=== PATIENT | female | born 1990 | race Caucasian/White ===

== ENCOUNTER 2018-06-15 07:30 | Outpatient (CLI) | payer OTHER, MEDICAID, SELFPAY ==
[2015-07-15 09:12] VITALS: BMI 29.7
[2018-06-15 07:52] VITALS: BMI 31.4
--- NOTE | 2018-06-25 13:53 | OB.TRI.NOTE ---
History of Present Illness Date of Service: 06/15/18 Was patient seen by the physician?: No Reason For Visit: DECREASED MOVEMENT Date of Service: 06/15/18 Final JESSICA Source: LMP Gestational age: 39w 6d Allergies No Known Allergies Allergy (Verified 06/19/18 22:58) NST - FHR Rate Baby A Baseline: 130 bppm Variability:: Moderate Accelerations:: 15 x 15 Decelerations:: None NST Reactive:: Yes, Appropriate for gestational age FHR Category:: Category I Uterine Activity:: irritability Impression/Plan 28 YOF multigravida with decreased movement at 39 weeks gestationb reactive NST to follow up in office as scheduled or as needed
== END 2018-06-15 08:15 | disposition home or self-care (01) ==
LOC: WPOUT 07:38 → WP 07:38
PROVIDERS: Family Provider Family Medicine; PCP Family Medicine; Referring Provider Obstetrics & Gynecology; Visit Provider Obstetrics & Gynecology
DX: O36.8130 Decreased fetal movements, third trimester, not applicable or unspecified (principal); Z3A.39 39 weeks gestation of pregnancy
CPT/HCPCS: 59025; 59050; 99218; G0378

== ENCOUNTER 2018-06-19 22:05 | Inpatient (IN) | payer OTHER, MEDICAID, SELFPAY ==
[2018-06-19] MEDS: Lactated Ringers 1,000 ML 50 ML IV (22:50)
[2018-06-19 22:57] VITALS: BMI 31.5
[2018-06-19 23:21] LABS: Absolute Lymphocyte Count 2.34 X10^3/ul (0.83-4.51); Absolute Neutrophil Count 7.4 X10^3/uL (2.0-7.7); Basophil# 0.01 X10^3/uL; Basophil% 0.1 % (0-1); Eosinophil# 0.08 X10^3/uL; Eosinophils% 0.8 % (0-5); Hematocrit 32.6 % (37-47); Hemoglobin 11.2 g/dl (12.0-15.0); Lymphocyte # 2.34 X10^3/ul (4.0); Lymphocyte % 22.1 % (19-41); Mean Corp Hgb Conc 34.4 g/gl (32-36); Mean Corpuscular Hgb 29.3 pg (27.0-32.0); Mean Corpuscular Volume 85.3 fL (81-99); Mean Platelet Vol. 8.8 fl (6.2-12.0); Monocyte# 0.77 X10^3/uL; Monocyte% 7.3 % (0-10); Neutrophil # 7.36 X10^3/uL (2.7-7.7); Neutrophil % 69.6 % (47-70); Platelet Count 230 K/mm3 (150-450); RBC Distribution Width CV 12.8 % (11.6-14.6); RBC Distribution Width SD 39.3 fl (35.1-43.9); Red Blood Count 3.82 M/mm3 (4.2-5.4); White Blood Count 10.6 K/mm3 (4.4-11.0)
[2018-06-19 23:23] LABS: POSITIVE COUNT NO; POSITIVE DIFFERENTIAL NO; POSITIVE MORPHOLOGY NO
[2018-06-19] MEDS: Oxytocin 30 units/NS 500 ml 30 UNITS/500 ML IV.SOLN IV (23:50)
[2018-06-20] MEDS: Oxytocin 30 units/NS 500 ml 30 UNITS/500 ML IV.SOLN 334 UNITS IV (01:25)
--- NOTE | 2018-06-20 01:47 | HP.PCM_ITS ---
- Problem List (1) 40 weeks gestation of Status: Acute (2) Multiparity Status: Acute (3) Spontaneous rupture of membranes Status: Acute History Date of Admission: 06/20/18 Final JESSICA: 06/16/18 Final JESSICA Source: LMP Gestational age: 40 Weeks and 4 Days History of this : This is a 28 year-old, G4, P3003, at 40 weeks gestational age who presents after SROM at home. Contractions q 8 hrs. No VB. Allergies No Known Allergies Allergy (Verified 06/19/18 22:58) Home Medications: Home Medications Vits [Prenatabs FA ] 1 tablet PO DAILY 07/30/13 Smoking Status: Never smoker Alcohol: None Number of Fetus(es): 1 Heart Tracing: Category 1 TOCO Analysis: Ctx's q 8 hrs prior to pitocin on admission History Past Pregnancies: Past Pregnancies Delivery Date Name GA/Weeks Outcome Route Weight Gender Labor Length Anesthesia Delivery Location Provider FOB 40w6d 38w3d 39w2d Labs: GBS neg 1 hr GTT 65 Hgb 11.4 Syphilis neg RI Hep B neg HIV neg Rh positive Antibody screen neg GC/CT neg US at 32 wks for size date discrepancy: AGA 22% growth, nml fluid Expected Delivery Method: Spontaneous Vaginal Review of Systems Gynecological: Reports: - - +SROM Physical Exam General: Alert, No apparent distress HEENT: Atraumatic Lungs: - - No increased resp effort Abdomen: Gravid Extremities:: No edema Neurological: Neuro grossly intact [employer]: Normal external genitalia Estimated gestational size: Appropriate for gestational size Presentation: Cephalic Assessment/Plan All Active Problems 40 weeks gestation of (Acute) Multiparity (Acute) Spontaneous rupture of membranes (Acute) This is a 28 year-old, G4, P3003, at 40 weeks gestational age who presents after SROM at home. - Pitocin started for augmentation - GBS negative - Pt did not desire epidural - Routine intrapartum care - Progressed quickly, see delivery note
--- NOTE | 2018-06-20 01:50 | PCM.OPRPT ---
Problem List (1) 40 weeks gestation of Status: Acute (2) Multiparity Status: Acute (3) Spontaneous rupture of membranes Status: Acute Report of Operation Date of Procedure: 06/20/18 Pre-Operative Diagnosis: 40 week gestation, multiparous patient, SROM Post-Operative Diagnosis: As above Surgery/Procedure Performed:: Type of Anesthesia:: Local Specimen's removed: Placenta Drains: None Estimated Blood Loss (mL): 250 Description of Procedure: Patient progressed quickly on 2 mu/min of pitocin. Complete and pushing. Head, anterior shoulder, posterior shoulder delivered without force or delay. VMI delivered atraumatically and placed on mother's abdomen. Cord was clamped and cut after a 60 sec delay. Cord blood obtained. Placenta delivered intact with fundal massage. Placenta noted to be normal in appearance with a 3 VC. Fundus firm and bleeding hemostatic. 2nd degree left vaginal laceration repaired in usual fashion with 3-0 Vicryl. Grafts/Implants Used: None - Complications None - Admit VTE Documentation VTE Present on Admission: No VTE Mechan Device Prophylaxis: None VTE Pharm Prophylaxis ordered?: No Vaginal Delivery Maternal Presentation: Spontaneous Rupture of Membranes Method of Induction: Pitocin - Used for augmentation Amniotic Membrane Rupture Type: Spontaneous at home Amniotic Fluid Description: Clear Final JESSICA: 06/16/18 Gestational age: 40 Weeks and 4 Days Date of Procedure: 06/20/18 Pre-Operative Diagnosis: 40 week gestation, multiparous patient, SROM Post-Operative Diagnosis: As above Surgery/ Procedure Performed: Spontaneous Vaginal Delivery Type of Anesthesia: Local with 1% lidocaine Presentation: Vertex Placental Delivery Description: Expressed Cord Vessel Description: 3 Vessels Nuchal Cord Compression: Without compression Cord Entanglement: Around neck x 1, loose Estimated Blood Loss: 250 A gender: Male (1 minute): 8 (5 minute): 9 Episiotomy Description: None Laceration: 2nd degree - left vaginal Medications given after delivery: IV Pitocin Complications: None Baby B - Information Amniotic Membrane Rupture Type: Spontaneous Presentation: Vertex - Operative Information Cord Entanglement: Around neck x 1, loose Cord Vessel Description: 3 Vessels Infant B gender: Male (1 minute): 8 (5 minute): 9
[2018-06-20] MEDS: Oxytocin 30 units/NS 500 ml 30 UNITS/500 ML IV.SOLN 167 UNITS IV (01:55)
[2018-06-20] MEDS: 0.9% Saline Lock 10 ML Syringe IV (03:04)
[2018-06-20 04:40] VITALS: BP 117/74; PULSE 78; RESP 16; TEMP 37.7
[2018-06-20] MEDS: Ibuprofen 600 MG Tablet PO ×2 (06:45→14:09)
[2018-06-20 07:35] VITALS: BP 114/58; PULSE 75; RESP 16; TEMP 36.6; O2SAT 99
--- NOTE | 2018-06-20 08:32 | PCM.PN.BLA ---
Progress Note At bedside to check on pt. She is doing well. currently. She has no complaints and feels well. Continue routine care
[2018-06-20 12:01] VITALS: BP 112/74; PULSE 80; RESP 16; TEMP 36.6; O2SAT 99
[2018-06-20 16:30] VITALS: BP 119/67; PULSE 68; RESP 18; TEMP 36.7; O2SAT 99
[2018-06-20 20:35] VITALS: BP 108/53; PULSE 72; RESP 18; TEMP 36.4
[2018-06-21 00:35] VITALS: BP 116/58; PULSE 67; RESP 18; TEMP 36.2
[2018-06-21] MEDS: Ibuprofen 600 MG Tablet PO ×2 (00:39→07:42)
[2018-06-21 04:45] VITALS: BP 123/68; PULSE 66; RESP 18; TEMP 36.5
[2018-06-21 07:42] VITALS: BP 121/77; PULSE 65; RESP 16; TEMP 36.4; O2SAT 95
--- NOTE | 2018-06-21 08:03 | PCM.PN.OB ---
Patient Problems: Active and Suspected Problems 40 weeks gestation of (Acute) Multiparity (Acute) Spontaneous rupture of membranes (Acute) Subjective: pt seen at bedside doing well. pt reports good pain control. lochia mild. breast feeding well. - Physical Exam General: Alert, Oriented x3 Abdomen: Soft, Non Tender, Non-Distended, - - fundus firm Extremities: No Calf Tenderness Vital Signs Temp Pulse Resp BP Pulse Ox 97.6 F L 65 16 121/77 H 95 06/21/18 07:42 06/21/18 07:42 06/21/18 07:42 06/21/18 07:42 06/21/18 07:42 Oxygen Delivery Method Room Air Weight: 80.739 kg Body Mass Index (BMI) 31.5 Intake and Output for Last 24 Hours 06/19/18 06/20/18 06/21/18 23:59 23:59 23:59 Intake Total 2468 / 2468 Output Total 1500 / 1500 Balance 968 / 968 Medical Necessity - Tobacco Use Smoking Status: Never smoker Assessment/Plan All Active Problems 40 weeks gestation of (Acute) Multiparity (Acute) Spontaneous rupture of membranes (Acute) PPD#1, doing well routine care pain mgmt dc home requested per patient
--- NOTE | 2018-06-21 08:06 | DCINST_ITS ---
Discharge Diet: No Restrictions Discharge Activity: Return to Normal Activity, May not drive while taking narcotic pain medications., May Shower May resume sexual activity in: 4-6 weeks Additional Activity Instructions:: Nothing in the vagina for 4-6 weeks. You may return to work/school in 6 weeks. Call your doctor if your incision/area has: Continuous Slow Oozing, Sudden Increased Bleeding, Increased Pain/ Swelling, Increased Redness, Foul Smelling Discharge Additional Instructions: If you experience any of the following, contact your healthcare provider. * Bleeding that soaks a pad every hour for 2 hours * Fever 100.4 or higher * Unrelieved incision or abdominal pain * Swelling, redness, discharge or bleeding from your incision or episiotomy site * Your incision begins to separate * Problems urinating (including inability to urinate or burning while urinating). * Visual changes * Severe headache * Flu-like symptoms * Pain or redness in one of both of your breasts * Pain, warmth, tenderness or swelling in your legs, especially the calf area * Frequent nausea and vomiting * Symptoms of depression or anxiety If you experience any of the following, call 911 or go to the nearest Emergency Room. * Chest pain * Problems breathing * Seizure activity * Partial or complete paralysis of a body part, slurred speech, weakness or drooping of the face, or a sudden inability to walk or hold your balance Allergies/Adverse Reactions: Allergies No Known Allergies Allergy (Verified 06/19/18 22:58) Medications to take at Discharge Vits [Prenatabs FA ] 1 tablet PO DAILY 07/30/13 Ibuprofen [Motrin] 600 mg PO Q6H PRN PRN #30 tablet 06/21/18 The following prescriptions were given: Ibuprofen [Motrin] 600 mg PO Q6H PRN PRN #30 tablet PRN Reason: Mild Pain (1-04/18) When: Call to make an appointment with your doctor in 6 weeks. If you had eleva cecil Blood Pressure or 4th degree laceration you will need to be seen in 2 weeks. Primary Care Physician: Reyes Alan DO [Primary Care Provider] - Test Results: Test results from this visit will be discussed in further detail at your follow- up appointment, if applicable.
[2018-06-21 12:00] VITALS: BP 117/76; PULSE 84; RESP 18; TEMP 36.7
--- NOTE | 2018-06-25 18:50 | NURSING ---
Follow up phone call made and encouraged to call back if we can be of assistance. Evon RN IBCLC
--- NOTE | 2018-07-03 13:50 | NURSING ---
no answer on follow up phone call. left voicemail
== END 2018-06-21 12:35 | disposition home or self-care (01) | DRG 807 ==
PROVIDERS: Admitting Provider Obstetrics & Gynecology; Family Provider Family Medicine; PCP Family Medicine; Visit Provider Obstetrics & Gynecology
DX: O70.1 Second degree perineal laceration during delivery (principal); O69.82X0 Labor and delivery complicated by other cord entanglement, without compression, not applicable or unspecified; Z37.0 Single live birth; Z3A.40 40 weeks gestation of pregnancy
CPT/HCPCS: 59025; 59050; 85025; 86850; 86900; 99218; J7120; A4216; G0378

== ENCOUNTER 2018-06-25 15:30 | Outpatient (CLI) | payer OTHER, SELFPAY ==
[2018-06-25] VITALS (8 sets, daily range): BP systolic 116–168; BP diastolic 57–82; PULSE 67–100; RESP 16–18; TEMP 36.6–36.8; O2SAT 97–99; BMI 28.7
[2018-06-25 16:33] LABS: Hematocrit 38.6 % (37-47); Hemoglobin 13.2 g/dl (12.0-15.0); Mean Corp Hgb Conc 34.2 g/gl (32-36); Mean Corpuscular Hgb 28.8 pg (27.0-32.0); Mean Corpuscular Volume 84.3 fL (81-99); Mean Platelet Vol. 8.7 fl (6.2-12.0); Platelet Count 328 K/mm3 (150-450); RBC Distribution Width CV 12.5 % (11.6-14.6); RBC Distribution Width SD 37.6 fl (35.1-43.9); Red Blood Count 4.58 M/mm3 (4.2-5.4); Scan Indicated on CBC? Y/N NO; White Blood Count 11.7 K/mm3 (4.4-11.0)
[2018-06-25 16:46] LABS: International Normalized Ratio 1.1; Prothrombin Time (Protime)PT. 13.7 SECONDS (11.7-14.9)
[2018-06-25 16:47] LABS: Partial Thromboplast Time 30.1 Seconds (24.1-36.2)
[2018-06-25 16:54] LABS: Protein, Urine (Random) 65.2 mg/dL (<11.9); Protein:Creat Ratio 2705 mg/g CRE (0-200)
[2018-06-25] MEDS: Magnesium Sulfate 20 GM/500 ML BAG IV (17:14)
[2018-06-25 17:23] LABS: AST(SGOT) 15 U/L (15-37); Alanine Aminotransfer ALT/SGPT 20 U/L (13-56); Creatinine, Serum 0.74 mg/dL (0.55-1.02); EST Glomerular Filtration Rate 99 mL/min (>60); Est Glom Filt Rate - Afr Amer 120 mL/min (>60); Estimated Creatinine Clearance 92.79 ml/min
[2018-06-25] MEDS: Labetalol 100 MG Tablet PO (18:21)
--- NOTE | 2018-06-25 18:26 | PCM.HP.BLA ---
History and Physical Date of Admission: 06/25/18 28-year-old 4 para 4 female who presents status post spontaneous vaginal delivery on 06/20/2018 presented to the office today complaining of a persistent headache. She denies any diplopia or epigastric pain. She has no nausea or vomiting. She has average lochia. She did not have preeclampsia with any of her previous pregnancies or . Sick contacts include 2 of her children have strep and her is currently ill. She initially thought that her headache was going to be a result of her coming down with the same illness that her family had. However, she came into the office today because of some increased edema as well and was found to have elevated blood pressures. Since she arrived on labor and delivery, her blood pressures were somewhat labile. She met criteria for hypertensive protocol and was given 1 dose of IV labetalol. Her blood pressures responded well and she required no medication for her headache, after blood pressures improved her headache resolved. She denies any current headache. Obstetrical history is significant for 3 previous spontaneous vaginal deliveries Medical history significant for anemia of Surgical history: Hymenectomy Social history: She denies any tobacco alcohol or drug use, she lives at home with her and children. Review of systems: General: No fevers or chills Heme: No history of prolonged bleeding or easy bruising Respiratory: No shortness of breath or cough GI: No diarrhea or constipation, no emesis Physical exam: Blood pressures recorded and reviewed. General: Awake, alert, no acute distress skin: Warm dry and intact Abdomen: Soft, nontender, nondistended, no rebound or guarding Extremities: 1+ edema, 2+ DTRs no clonus Assessment and plan: 28-year-old 4 para 4 day #5 status post spontaneous vaginal delivery with preeclampsia. 23-hour observation for preeclampsia with severe features and magnesium prophylaxis .blood pressures are now controlled. Will initiate p.o. labetalol. Will continue magnesium prophylaxis overnight. Patient may have regular diet. is here with patient because she continues to breast-feed. Will treat headache or nausea as needed. Patient understands and agrees with plan. Labs were reviewed and are normal. Patient is stable, will likely just discharge her home tomorrow.
[2018-06-25] MEDS: Ondansetron 4 MG/2 ML Vial IV (19:22)
[2018-06-26] VITALS (13 sets, daily range): BP systolic 112–148; BP diastolic 69–89; PULSE 75–101; RESP 3–18; TEMP 36.6–37.4; O2SAT 97–99
[2018-06-26] MEDS: Magnesium Sulfate 20 GM/500 ML BAG IV (03:13)
[2018-06-26] MEDS: Ibuprofen 600 MG Tablet PO (07:02)
--- NOTE | 2018-06-26 07:22 | PCM.PN.OB ---
Subjective: pain well controlled, average lochia. Feels achy. Feels like it is hard to swallow not because throat is sore but b/c tongue and throat are floppy. No SOB. Body feels heavy. C/o DELGADO, frontal 4/10 but hasn't taken meds. No visual changes or epigastric pain. No N/V. No chills. - Physical Exam General: Alert, Cooperative, - - appears tired Cardiovascular: Regular rate Abdomen: Soft, Non Tender, Non-Distended Extremities: Edema - trace, no clonus, 1+ DTRs Vital Signs Temp Pulse Resp BP Pulse Ox 97.8 F 86 16 133/76 H 97 06/26/18 03:14 06/26/18 03:14 06/26/18 03:14 06/26/18 03:14 06/26/18 03:14 Oxygen Delivery Method Room Air Weight: 73.482 kg Body Mass Index (BMI) 28.7 Intake and Output for Last 24 Hours 06/24/18 06/25/18 06/26/18 23:59 23:59 23:59 Intake Total 1160 / 1160 215 / 215 Output Total 1350 / 1350 Balance -190 / -190 215 / 215 Laboratory Tests Past 24 Hrs 06/25/18 06/25/18 06/25/18 15:55 15:55 15:55 WBC 11.7 H RBC 4.58 Hgb 13.2 Hct 38.6 MCV 84.3 MCH 28.8 MCHC 34.2 RDW 12.5 RDW Differential 37.6 Plt Count 328 MPV 8.7 PT 13.7 INR 1.1 APTT 30.1 Creatinine 0.74 Estim Creat Clear Calc 92.79 Est GFR (MDRD) Af Amer 120 Est GFR (MDRD) Non-Af 99 Uric Acid 6.0 AST 15 ALT 20 U Random Total Protein Urine Creatinine Protein/Creatinin Ratio 06/25/18 16:25 WBC RBC Hgb Hct MCV MCH MCHC RDW RDW Differential Plt Count MPV PT INR APTT Creatinine Estim Creat Clear Calc Est GFR (MDRD) Af Amer Est GFR (MDRD) Non-Af Uric Acid AST ALT U Random Total Protein 65.2 H Urine Creatinine 24.10 Protein/Creatinin Ratio 2705 H Medical Necessity - Tobacco Use Smoking Status: Never smoker Assessment/Plan All Active Problems 40 weeks gestation of (Acute) Multiparity (Acute) Spontaneous rupture of membranes (Acute) PPD#6 s/p w/ PP preeclampsia. Bp very stable now. DELGADO but mild and hasn't taken meds for it. Encouraged NSAIDs, d/c mag and if spikes fever may need eval for strep pharyngitis as has been exposed this week. Likely d/c home later today if BP stable on labetalol w/ f/u in office in 2-5 days or prn
[2018-06-26 08:05] LABS: Hematocrit 39.4 % (37-47); Hemoglobin 13.4 g/dl (12.0-15.0); Mean Corpuscular Volume 85.3 fL (81-99); Mean Platelet Vol. 8.3 fl (6.2-12.0); Platelet Count 248 K/mm3 (150-450); RBC Distribution Width CV 12.7 % (11.6-14.6); RBC Distribution Width SD 39.2 fl (35.1-43.9); Red Blood Count 4.62 M/mm3 (4.2-5.4); Scan Indicated on CBC? Y/N NO; White Blood Count 11.1 K/mm3 (4.4-11.0)
--- NOTE | 2018-06-26 09:25 | PCM.DCVAG ---
Discharge Diet: No Restrictions Discharge Activity: Return to Normal Activity, May not drive while taking narcotic pain medications., May Shower May resume sexual activity in: 4-6 weeks Additional Activity Instructions:: Nothing in the vagina for 4-6 weeks. You may return to work/school in 6 weeks. Call your doctor if your incision/area has: Continuous Slow Oozing, Sudden Increased Bleeding, Increased Pain/ Swelling, Increased Redness, Foul Smelling Discharge Instructions: Understanding Preeclampsia Additional Instructions: If you experience any of the following, contact your healthcare provider. Bleeding that soaks a pad every hour for 2 hours Fever 100.4 or higher Unrelieved incision or abdominal pain Swelling, redness, discharge or bleeding from your incision or episiotomy site Your incision begins to separate Problems urinating (including inability to urinate or burning while urinating). Visual changes Severe headache Flu-like symptoms Pain or redness in one of both of your breasts Pain, warmth, tenderness or swelling in your legs, especially the calf area Frequent nausea and vomiting Symptoms of depression or anxiety If you experience any of the following, call 911 or go to the nearest Emergency Room. Chest pain Problems breathing Seizure activity Partial or complete paralysis of a body part, slurred speech, weakness or drooping of the face, or a sudden inability to walk or hold your balance Allergies/Adverse Reactions: Allergies No Known Allergies Allergy (Verified 06/25/18 16:50) Medications to take at Discharge Vits [Prenatabs FA ] 1 tablet PO DAILY 07/30/13 Ibuprofen [Motrin] 600 mg PO Q6H PRN PRN #30 tablet 06/21/18 Labetalol [Trandate (Beta Fermin)] 50 mg PO BID #20 tablet 06/26/18 Please Follow Up With: Imelda Nieves MD - [phone] When: Make an appointment for a blood pressure check in 3-4 days or as needed Primary Care Physician: Reyes Alan DO [Primary Care Provider] - Test Results: Test results from this visit will be discussed in further detail at your follow-up appointment, if applicable.
--- NOTE | 2018-06-26 09:28 | DCINST_ITS ---
Discharge Diet: No Restrictions Discharge Activity: Return to Normal Activity, May not drive while taking narcotic pain medications., May Shower May resume sexual activity in: 4-6 weeks Additional Activity Instructions:: Nothing in the vagina for 4-6 weeks. You may return to work/school in 6 weeks. Call your doctor if your incision/area has: Continuous Slow Oozing, Sudden Increased Bleeding, Increased Pain/ Swelling, Increased Redness, Foul Smelling Discharge Instructions: Understanding Preeclampsia Additional Instructions: If you experience any of the following, contact your healthcare provider. * Bleeding that soaks a pad every hour for 2 hours * Fever 100.4 or higher * Unrelieved incision or abdominal pain * Swelling, redness, discharge or bleeding from your incision or episi otomy site * Your incision begins to separate * Problems urinating (including inability to urinate or burning while urinating). * Visual changes * Severe headache * Flu-like symptoms * Pain or redness in one of both of your breasts * Pain, warmth, tenderness or swelling in your legs, especially the calf area * Frequent nausea and vomiting * Symptoms of depression or anxiety If you experience any of the following, call 911 or go to the nearest Emergency Room. * Chest pain * Problems breathing * Seizure activity * Partial or complete paralysis of a body part, slurred speech, weakness or drooping of the face, or a sudden inability to walk or hold your balance Allergies/Adverse Reactions: Allergies No Known Allergies Allergy (Verified 06/25/18 16:50) Medications to take at Discharge Vits [Prenatabs FA ] 1 tablet PO DAILY 07/30/13 Ibuprofen [Motrin] 600 mg PO Q6H PRN PRN #30 tablet 06/21/18 Labetalol [Trandate (Beta Fermin)] 50 mg PO BID #20 tablet 06/26/18 Please Follow Up With: Imelda Nieves MD - [phone] When: Make an appointment for a blood pressure check in 3-4 days or as needed Primary Care Physician: Reyes Alan DO [Primary Care Provider] - Test Results: Test results from this visit will be discussed in further detail at your follow- up appointment, if applicable.
--- NOTE | 2018-06-26 09:37 | PN.OBGYN_ITS ---
Subjective: Headache is completely resolved. Patient is able to ambulate now. The heaviness in her body, the headache, and the feeling that she had weak swallo wing have all completely resolved. She did tolerate regular diet. She has not received labetalol this morning. - Physical Exam General: Alert, Cooperative, No apparent distress Extremities: - - 2+ DTRs, no clonus Vital Signs Temp Pulse Resp BP Pulse Ox 98.3 F 88 16 112/69 98 06/26/18 06:20 06/26/18 07:02 06/26/18 07:02 06/26/18 07:02 06/26/18 07:02 Oxygen Delivery Method Room Air Weight: 73.482 kg Body Mass Index (BMI) 28.7 Intake and Output for Last 24 Hours 06/24/18 06/25/18 06/26/18 23:59 23:59 23:59 Intake Total 1160 / 1160 435 / 435 Output Total 1350 / 1350 300 / 300 Balance -190 / -190 135 / 135 Laboratory Tests Past 24 Hrs 06/25/18 06/25/18 06/25/18 15:55 15:55 15:55 WBC 11.7 H RBC 4.58 Hgb 13.2 Hct 38.6 MCV 84.3 MCH 28.8 MCHC 34.2 RDW 12.5 RDW Differential 37.6 Plt Count 328 MPV 8.7 PT 13.7 INR 1.1 APTT 30.1 Creatinine 0.74 Estim Creat Clear Calc 92.79 Est GFR (MDRD) Af Amer 120 Est GFR (MDRD) Non-Af 99 Uric Acid 6.0 AST 15 ALT 20 U Random Total Protein Urine Creatinine Protein/Creatinin Ratio 06/25/18 06/26/18 16:25 07:55 WBC 11.1 H RBC 4.62 Hgb 13.4 Hct 39.4 MCV 85.3 MCH 29.0 MCHC 34.0 RDW 12.7 RDW Differential 39.2 Plt Count 248 MPV 8.3 PT INR APTT Creatinine Estim Creat Clear Calc Est GFR (MDRD) Af Amer Est GFR (MDRD) Non-Af Uric Acid AST ALT U Random Total Protein 65.2 H Urine Creatinine 24.10 Protein/Creatinin Ratio 2705 H Medical Necessity - Tobacco Use Smoking Status: Never smoker Assessment/Plan All Active Problems 40 weeks gestation of (Acute) Multiparity (Acute) Spontaneous rupture of membranes (Acute) Hospital day #2 status post readmission for elevated blood pressures and suspected preeclampsia. At this point, patient has no headache. Her blood pressures are normal this morning. Will discharge home with a prescription for labetalol, but if patient feels lightheaded or dizzy, she is to hold it. Follow-up in the office in 2 to 3 days for blood pressure check. Call if symptoms of severe preeclampsia or if the significant headache returns or other issues develop. Patient is very comfortable with this plan and has good help at home to support her if she would need to return for any issues. If blood pressures remain stable will be okay with discharge home after lunch.
--- NOTE | 2018-06-26 10:36 | NURSING ---
0800 pt oob up to br to void pt gait now steady; pt states that she is feeling much better now that mag is off. f/f u/1 lochia scant. see QS for assessment. dr oleg reynoldss loy florez'ed
[2018-06-26] MEDS: Labetalol 100 MG Tablet PO (12:58)
== END 2018-06-26 14:10 | disposition home or self-care (01) ==
LOC: WPOUT 15:39 → WP 15:39
PROVIDERS: Obstetrics & Gynecology; Family Provider Family Medicine; PCP Family Medicine; Referring Provider Obstetrics & Gynecology; Visit Provider Obstetrics & Gynecology
DX: O14.15 Severe pre-eclampsia, complicating the puerperium (principal)
CPT/HCPCS: 96361; 96365; 96366 ×13; 96375; 36415; 82565; 82570; 84156; 84450; 84460; 84550; 85027; 85610; 85730; 99218; J7040; G0378; J2405

== ENCOUNTER 2018-06-30 14:30 | Inpatient (IN) | payer OTHER, SELFPAY ==
[2018-06-25 16:49] VITALS: BMI 28.7
[2018-06-30] VITALS (17 sets, daily range): BP systolic 110–193; BP diastolic 56–95; PULSE 65–103; RESP 16–18; TEMP 36.8–37.3; O2SAT 97–98; BMI 28.1
[2018-06-30] MEDS: Lactated Ringers 1,000 ML 15 ML IV (14:55)
--- NOTE | 2018-06-30 15:01 | ECHOD_ITS ---
Reason For Study: Elevated BP post 10 days. Procedure This was a 2D Doppler, Color Flow transthoracic echocardiogram. Exam performed portable in patient room. Left Ventricle Normal size and thickness. Left ventricular systolic function is normal. The estimated ejection fraction is 60 %. No evidence for diastolic dysfunction. No regional wall motion abnormalities noted. Right Ventricle Normal RV size. Normal systolic function. Atria Normal left atrium. Normal right atrium. No doppler evidence for ASD. Mitral Valve There is no mitral valve stenosis. No mitral valve insufficiency. Tricuspid Valve There is no tricuspid stenosis. No tricuspid valve insufficiency. Unable to estimate RV systolic pressure due to insufficient tricuspid regurgitant envelope. Aortic Valve Trisinus/trileaflet aortic valve. There is no aortic stenosis. No aortic valve insufficiency. Pulmonic Valve There is no pulmonic valvular stenosis. No pulmonic valve insufficiency. Great Vessels Normal aortic root. Pericardium/Pleural No pericardial effusion. MMode/2D Measurements & Calculations LVIDd: 4.0 cm IVSd: 1.00 cm Ao root diam: 2.7 cm LVIDs: 2.5 cm LVPWd: 1.0 cm RVDd: 2.8 cm FS: 37.8 % LAV(MOD-bp): 32.0 ml LA A4 area: 12.7 cm2 LA dimension(2D): 3.2 cm LAV(MOD-bp) Indexed: 18.3 ml/m2 LAV(MOD-sp2): 31.5 ml LAV(MOD-sp4): 31.5 ml RA A4 area: 11.0 cm2 Time Measurements MV dec time: 0.11 sec Doppler Measurements & Calculations MV E max tyson: 80.8 cm/sec Lat Peak E' Tyson: 10.8 cm/sec Med Peak E' Tyosn: 10.2 cm/sec MV A max tyson: 66.5 cm/sec E/E' lat: 7.4 E/E' med: 7.9 MV E/A: 1.2 Ao V2 max: 142.2 cm/sec LV V1 max: 117.7 cm/sec PA V2 max: 97.1 cm/sec Ao max P.1 mmHg LV V1 max P.5 mmHg TR max tyson: 213.6 cm/sec TR max P.3 mmHg Interpretation Summary Left ventricular systolic function is normal. The estimated ejection fraction is 60 %. No evidence for diastolic dysfunction. No regional wall motion abnormalities noted. Ordering Physician: Imelda Nieves Referring Physician: Reyes Alan Performed By: Jody Hendricks RDCS, RVT
[2018-06-30] MEDS: NIFEdipine 30 MG Tablet PO (15:12)
[2018-06-30] MEDS: oxyCODONE 5 MG Tablet PO (15:56)
[2018-06-30] MEDS: hydrALAZINE 20 MG/ML Vial 5 MG IV (15:58)
[2018-06-30 16:07] LABS: BNP,B-Type NATRIURETIC PEPTIDE 50.5 pg/mL (0-100)
[2018-06-30] MEDS: Acetaminophen 500 MG Tablet 1000 MG PO (17:21)
--- NOTE | 2018-06-30 18:01 | PCM.HP.BLA ---
History and Physical Date of Admission: 06/30/18 28-year-old G4, P4 status post spontaneous vaginal delivery 06/19/18 without complications presents for her second readmission for elevated blood pressures. She was readmitted on 06/23/2018 for elevated blood pressures and was on magnesium. Her blood pressure stabilized and she was discharged home on labetalol. She arrived to the office today with increased blood pressures and complete headache that was severe enough that she had difficulty sitting still and resting. She denies any nausea vomiting. She has had a sore throat some congestion. Of note her family has had strep throat. She denies any epigastric pain or visual disturbances. Her lochia is average. Review of systems: General: No fevers or chills, some fatigue appropriate for Cardiac: No chest pain or palpitations Respiratory: No shortness of breath or productive cough, minimal pedal edema not worsening neuro-headache in the back of her neck and head, no visual disturbances, no slurred speech or weakness or tingling See previous H&P, no change in medical or surgical history Physical exam: General: Awake and alert, no acute distress but does appear uncomfortable skin: Warm dry and intact, slightly flushed Abdomen: Soft, nontender nondistended Lungs: Clear to station bilaterally Heart S1-S2 regular rate and rhythm not tachycardic Extremities: 1+ edema, 2+ DTRs, no clonus Assessment and plan 28-year-old 4 para 4 status post spontaneous vaginal delivery on 06/19/2018 with elevated blood pressures . Pressures of acutely worsened again. Required IV treatment. Will initiate p.o. Procardia and use IV hydralazine as needed for breakthrough blood pressure elevations. In addition we will continue labetalol. EKG and echocardiogram ordered. Will not repeat magnesium at this time Rapid strep ordered. However, would favor treatment since her entire family other than the have been diagnosed with strep throat in the past week.
[2018-06-30 18:02] LABS: ALB/GLOB Ratio 0.9 RATIO (0.9-2.4); AST(SGOT) 16 U/L (15-37); Alanine Aminotransfer ALT/SGPT 20 U/L (13-56); Albumin, Serum 3.4 g/dL (3.2-5.0); Alkaline Phosphatase 133 U/L (45-117); Anion Gap 7 (5-15); BUN 14 mg/dL (7-18); BUN/Creat Ratio 18.1 RATIO (10-20); Chloride 111 mmol/L (98-107); Creatinine, Serum 0.78 mg/dL (0.55-1.02); EST Glomerular Filtration Rate 93 mL/min (>60); Est Glom Filt Rate - Afr Amer 113 mL/min (>60); Estimated Creatinine Clearance 88.03 ml/min; Globulin 3.8 g/dL (2.2-4.2); Glucose 87 mg/dL (74-106); Potassium 3.7 mmol/L (3.5-5.1); Protein, Total 7.2 g/dL (6.4-8.2); Sodium Level 142 mmol/L (136-145)
[2018-06-30] MEDS: Ibuprofen 600 MG Tablet PO (20:09)
[2018-06-30] MEDS: Labetalol 100 MG Tablet PO (21:56)
--- NOTE | 2018-06-30 22:10 | NURSING ---
Pt aware of recent update given and new orders received from Dr. Nieves. Informed pt of recent BP and need for Hydralazine IVP. Pt denies symptoms and notes that she was startled when BP machine went off to take BP. Labetalol 100 mg PO given per order. Pt verbalized understanding. BP informed of BP since Hydralazine given.
--- NOTE | 2018-06-30 22:13 | NURSING ---
At 2140, Dr. Nieves called in for update. 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 Clarified orders. Order received to heplock IV; pt to ambulate as tolerated but do not encourage ambulating in halls; Hydralazine 10 mg IVP if needed for elevated BP per protocol and order and if does not control pt's BP, call physician.
[2018-06-30] MEDS: 0.9% Saline Lock 10 ML Syringe IV (22:27)
[2018-07-01] VITALS (15 sets, daily range): BP systolic 121–181; BP diastolic 68–94; PULSE 86–107; RESP 14–18; TEMP 37.2–37.7; O2SAT 97–98
[2018-07-01] MEDS: Ibuprofen 600 MG Tablet PO (01:49)
--- NOTE | 2018-07-01 05:52 | NURSING ---
6231 updated on elevated BP and normal range BP's following. Plan to increase labetalol to 200mg TID at this time.
[2018-07-01] MEDS: Labetalol 200 MG Tablet PO ×2 (06:14→14:25)
--- NOTE | 2018-07-01 08:00 | ED.RN ---
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 at this time, pt resting quietly with eyes closed. Refer to QS for most recent vital signs. at 0647 BP 111/61 HR 82
--- NOTE | 2018-07-01 08:35 | NURSING ---
0400: Report given to Jackie [place], assuming care.
--- NOTE | 2018-07-01 08:50 | NURSING ---
diesel truck technician at bedside to obtain echocardiogram
[2018-07-01] MEDS: NIFEdipine 30 MG Tablet PO (10:10)
--- NOTE | 2018-07-01 12:43 | PCM.PN.OB ---
Subjective: Patient sitting up in bed eating lunch at this time. She reports resolution of headache, denies any visual changes. Continues to have nasal congestion and sore throat - of note other members of her household have strep throat but her Strep Culture here in hospital was negative. Patient denies any scotoma, dizziness or RUQ pain. Objective: VSS, Afebrile - see BP record. Patient has been normotensive this morning. A+O x3, NAD NT abdomen x 4 quadrants +2/4 reflexes, no edema in LE, normal capillary refill and peripheral pulses No clonus noted - Physical Exam General: Alert, Oriented x3, Cooperative HEENT: PERRLA, EOMI Oral: Moist Mucosa Lungs: Clear to auscultation, Normal air movement Cardiovascular: Regular rate, Regular Rhythm Abdomen: Soft, Non Tender Extremities: No edema, Capillary Refill Less than 3 Seconds, No Calf Tenderness, Peripheral Pulses Normal Musculoskeletal: No Tenderness to Palpation of Joints or Extremities Neurological: Cranial nerves II-XII grossly intact, Deep Tendon Reflexes 2+/4 and Symmetrical, Neuro grossly intact, Motor Exam 5/5 strength throughout Psych/Mental Status: Normal Affect, Appropriate Vital Signs Temp Pulse Resp BP Pulse Ox 99.9 F H 89 14 133/81 H 98 07/01/18 08:30 07/01/18 10:15 07/01/18 10:15 07/01/18 10:15 07/01/18 10:15 Oxygen Delivery Method Room Air Weight: 159 lb Body Mass Index (BMI) 28.1 Intake and Output for Last 24 Hours 06/29/18 06/30/18 07/01/18 23:59 23:59 23:59 Intake Total 396 / 396 Output Total 300 / 300 400 / 400 Balance 96 / 96 -400 / -400 Microbiology Past 72 Hours 06/30/18 17:45 Group A Streptococcus Rapid Screen - Preliminary Mucosa - Throat Laboratory Tests Past 24 Hrs 06/30/18 06/30/18 14:55 14:55 Sodium 142 Potassium 3.7 Chloride 111 H Carbon Dioxide 24.0 Anion Gap 7 BUN 14 Creatinine 0.78 Estim Creat Clear Calc 88.03 Est GFR (MDRD) Af Amer 113 Est GFR (MDRD) Non-Af 93 BUN/Creatinine Ratio 18.1 Glucose 87 Calcium 9.0 Total Bilirubin 0.20 AST 16 ALT 20 Alkaline Phosphatase 133 H B-Natriuretic Peptide 50.5 Total Protein 7.2 Albumin 3.4 Globulin 3.8 Albumin/Globulin Ratio 0.9 TSH 0.90 Medical Necessity - Tobacco Use Smoking Status: Never smoker Assessment/Plan All Active Problems 40 weeks gestation of (Acute) Multiparity (Acute) Spontaneous rupture of membranes (Acute) 28 y/o s/p , readmission for PP HTN - controlled with antihypertensive medications 1) Echocardiogram performed and was WNL - EFR = 60% and normal systolic and diastolic function noted. 2) Continue Antihypertensive medications as ordered 3) Will consult with OB back-up re: timing of discharge and plans for follow-up care Ni LEGGETT
[2018-07-01] MEDS: 0.9% Saline Lock 10 ML Syringe IV (14:26)
--- NOTE | 2018-07-01 14:55 | NURSING ---
Dr. Nieves to see pt at bedside.
--- NOTE | 2018-07-01 15:03 | DCINST_ITS ---
You will use the following diet at home:: No restrictions - limit salt and sodium intake, push water Your food should be the consistency of: Regular Your liquids should be the consistency of: Regular/Thin Discharge Activity: May Drive, May Shower Call your doctor if your incision/area has: Continuous Slow Oozing, Sudden Increased Bleeding, Foul Smelling Discharge Call your doctor if you observe: Fever of 101 or Higher, Using more than one pad per hour, Shortness of breath, Swelling in the ankles Instructions: Understanding Preeclampsia Allergies/Adverse Reactions: Allergies No Known Allergies Allergy (Verified 06/30/18 15:13) Medications to take at Discharge Vits [Prenatabs FA ] 1 tablet PO DAILY 07/30/13 Ibuprofen [Motrin] 600 mg PO Q6H PRN PRN #30 tablet 06/21/18 Labetalol [Trandate (Beta Fermin)] 100 mg PO TID #90 tablet 07/01/18 Nifedipine [Procardia Xl] 60 mg PO DAILY #30 tab.er.24 07/01/18 The following prescriptions were given: Nifedipine [Procardia Xl] 60 mg PO DAILY #30 tab.er.24 Labetalol [Trandate (Beta Fermin)] 100 mg PO TID #90 tablet Primary Care Physician: Reyes Alan DO [Primary Care Provider] - Test Results: Test results from this visit will be discussed in further detail at your follow- up appointment, if applicable. Please Follow Up With: Imelda Nieves MD - [phone] When: 5-7 days or as needed
--- NOTE | 2018-07-01 15:03 | PCM.PN.OB ---
Subjective: Patient denies any headache, visual disturbances. No chest pain or shortness of breath. No epigastric pain. Minimal vaginal bleeding. No fevers or chills. However, she does still feel ill with some congestion, nonproductive cough. She denies sore throat. Rapid strep test and confirmatory test were both negative. - Physical Exam General: Alert, Cooperative, No apparent distress Extremities: No edema, - - 2+ DTRs, no clonus Vital Signs Temp Pulse Resp BP Pulse Ox 99.2 F H 107 H 14 136/83 H 98 07/01/18 13:07 07/01/18 14:25 07/01/18 13:07 07/01/18 14:25 07/01/18 13:07 Oxygen Delivery Method Room Air Weight: 72.121 kg Body Mass Index (BMI) 28.1 Intake and Output for Last 24 Hours 06/29/18 06/30/18 07/01/18 23:59 23:59 23:59 Intake Total 396 / 396 Output Total 300 / 300 400 / 400 Balance 96 / 96 -400 / -400 Microbiology Past 72 Hours 06/30/18 17:45 Group A Streptococcus Rapid Screen - Preliminary Mucosa - Throat Laboratory Tests Past 24 Hrs 06/30/18 06/30/18 14:55 14:55 Sodium 142 Potassium 3.7 Chloride 111 H Carbon Dioxide 24.0 Anion Gap 7 BUN 14 Creatinine 0.78 Estim Creat Clear Calc 88.03 Est GFR (MDRD) Af Amer 113 Est GFR (MDRD) Non-Af 93 BUN/Creatinine Ratio 18.1 Glucose 87 Calcium 9.0 Total Bilirubin 0.20 AST 16 ALT 20 Alkaline Phosphatase 133 H B-Natriuretic Peptide 50.5 Total Protein 7.2 Albumin 3.4 Globulin 3.8 Albumin/Globulin Ratio 0.9 TSH 0.90 Medical Necessity - Tobacco Use Smoking Status: Never smoker Assessment/Plan All Active Problems 40 weeks gestation of (Acute) Multiparity (Acute) Spontaneous rupture of membranes (Acute) Hospital day #2 status post readmission for hypertensive emergency. Status post vaginal delivery. Will increase Procardia to 60 mg a day. ECG and echocardiogram were normal. Will leave on labetalol 100 mg p.o. 3 times daily and hopefully wean off soon. Monitor blood pressures at home. Return for symptoms of severe preeclampsia. Otherwise follow-up in the office in 5-7 business days or as needed. Patient agrees with plan.
== END 2018-07-01 15:20 | disposition home or self-care (01) | DRG 776 ==
PROVIDERS: Admitting Provider Obstetrics & Gynecology; Family Provider Family Medicine; PCP Family Medicine; Visit Provider Obstetrics & Gynecology
DX: O16.5 Unspecified maternal hypertension, complicating the puerperium (principal); I16.1 Hypertensive emergency
CPT/HCPCS: 36415; 80053; 83880; 84443; 87880; 93005; 93306; 94760; 99218; J7120; A4216; G0378

== ENCOUNTER 2018-07-28 15:43 | Emergency (ER) | payer OTHER, MEDICAID, SELFPAY ==
[2018-06-30 15:12] VITALS: BMI 28.1
[2018-07-28 15:45] VITALS: BP 149/97; PULSE 110; RESP 18; TEMP 37.1; O2SAT 96; BMI 26.9
--- NOTE | 2018-07-28 15:50 | ED.RN ---
PT DENIES HEADACHE OR CHEST PAIN. SENT TO ED FOR EVALUATION OF POSSIBLE PE. DR. ROBERTS INFORMED OF PT BP, AND REPORTS PT WILL STAY IN ED FOR FURTHER EVALUATION.
[2018-07-28 15:53] VITALS: O2SAT 96
--- NOTE | 2018-07-28 15:57 | CT_ITS ---
STUDY: CTA CHEST REASON FOR EXAM: Female, 28 years old. Dyspnea on exertion, fatigue, tachycardia, . RADIATION DOSAGE (If Supplied By Facility): CTDIvol = ( 5.87 ) mGy, DLP = ( 234.90 ) mGycm TECHNIQUE: The examination was performed with the intravenous administration of 75ML IV Isovue 300. Post-processing of the angiographic images was performed, with multiplanar reformation and 3D reconstruction. Individualized dose optimization techniques were used for this CT. COMPARISON: None. FINDINGS: Normal enhancement of the main pulmonary artery and right and left pulmonary arteries. Normal enhancement of the bilateral peripheral pulmonary arteries. There is no demonstrated pulmonary embolism. Normal thoracic aorta and visualized great vessels. There is no demonstrated aortic dissection. Normal heart and pericardium. Normal mediastinum. Normal hilar regions. Normal visualized trachea and bronchi. The lungs are well expanded. Normal pulmonary parenchyma. Normal pleura. Normal chest wall structures. Normal osseous structures. Normal visualized upper abdomen. CT/CTA Chest W/WO Contrast IMPRESSION: Normal CTA chest examination, without a demonstrated pulmonary embolism or arterial dissection. Electronically Signed: Santiago Damico MD at 17:08 EDT Tel , Service support ,
--- NOTE | 2018-07-28 15:58 | ED.VIS.GEN ---
History of Present Illness Chief Complaint: Shortness of Breath Informant: Patient Onset: Weeks - Onset of fatigue, dyspnea, dyspnea on exertion 1.5 weeks ago. Patient is 5 weeks post vaginal delivery. She reported anemia during . Context: Sudden Onset Timing: Continuous Quality: Fatigue and dyspnea Location: Generalized Current Severity: Mild Maximum Severity: Moderate Worsened by: Activity Relieved by: Better with rest Associated Symptoms: No associated symptoms Narrative: Patient is a 28-year-old status post vaginal delivery 5 weeks ago who was sent to the emergency room to evaluate for pulmonary embolus. She reports dyspnea, dyspnea exertion fatigue for 1.5 weeks. Patient did have preeclampsia. She has not been on any antihypertensive for 2 weeks. She denies headache. Denies visual, ocular auditory symptoms. Eyes trouble speech or swallowing. Does report sore throat. She denies cough. She does have history of allergies and attributes the sore throat and nasal drainage to allergies. She denies leg pain, swelling discoloration. She denies GI or symptoms. Prior similar symptoms: No Recent Illness/Hospitalization: Yes - Past Medical History (1) hypertension Status: Acute Past Medical History - Allergies and Home Meds Allergies/Adverse Reactions: Allergies No Known Allergies Allergy (Verified 07/28/18 15:44) Primary Care Physician: Reyes Alan DO [Primary Care Provider] - Prior records reviewed: Yes Surgical History: no surgical history Lives: Spouse/ Significant Other, With Family Smoking Status: Never smoker Alcohol: None Review of Systems General: Denies: Chills, Fever, Malaise, Sweats Eyes: Denies: Visual changes - bilaterally, Diplopia ENT: Denies: Rhinorrhea, Sore throat Cardiovascular: Denies: Chest pain, Palpitations Respiratory: Reports: Dyspnea, Dyspnea on exertion. Denies: Cough, Sputum, Orthopnea, Paroxysmal nocturnal dyspnea, -, - Gastrointestinal: Denies: Abdominal pain, Nausea, Vomiting, Diarrhea, Melena, Hematochezia Genitourinary: Denies: Dysuria, Hematuria, Frequency Musculoskeletal: Denies: Myalgias, Arthralgias, Neck pain, Back pain, Swelling, Extremity Pain Skin: Denies: Rash, Wounds Neurological: Denies: Headache, Weakness, Numbness Hematologic: Denies: Easy bruising, Easy bleeding Allergy: Denies: Uticaria, Swelling of the mouth Physical Exam Vital Signs/Narrative: Vital Signs Temp Pulse Resp BP Pulse Ox 07/28/18 15:45 98.8 F 110 H 18 149/97 H 96 Inital Vital Signs reviewed: Yes General: Well nourished, Well developed, No Acute Distress Head: Normocephalic, Atraumatic. Negative for: Trauma, Tenderness Eyes: Perrl, EOMI. Negative for: Pale conjunctiva, Scleral icterus ENT: Moist mucous membranes, No rhinorrhea, TM's clear Neck: Supple, Nontender, No lymphadenopathy, No JVD Cardiovascular: Regular rhythm, No murmurs, Tachycardia Respiratory: No distress, CTA bilaterally, Chest nontender Abdomen: Soft, Nontender, Nondistended, Normal bowel sounds Back: Nontender, Normal Inspection Extremities: Nontender, No edema Skin: Normal color, No rash, No Trauma. Negative for: Cyanosis, Diaphoresis, Jaundice Neurological: Alert, Oriented x3, Cranial nerves II-XII grossly intact, Normal Strength, Normal Sensation Psychological: Normal affect, Normal Mood Diagnostic/Tx/Re-eval Impressions Chest CTA 07/28/18 15:57 IMPRESSION: Normal CTA chest examination, without a demonstrated pulmonary embolism or arterial dissection. Electronically Signed: Santiago Damico MD at 17:08 EDT Tel , Service support , 07/28/18 15:57 CTA Chest W/WO Contrast [CT] Stat Laboratory Results 07/28/18 07/28/18 16:05 16:05 WBC 8.4 RBC 4.92 Hgb 13.7 Hct 40.7 MCV 82.7 MCH 27.8 MCHC 33.7 RDW 12.2 RDW Differential 36.6 Plt Count 268 MPV 9.1 Immature Gran % (Auto) 0.200 Neut % (Auto) 68.8 Lymph % (Auto) 23.8 [place] % (Auto) 5.9 Eos % (Auto) 0.8 Baso % (Auto) 0.5 Absolute Neuts (auto) 5.8 Absolute Lymphs (auto) 1.99 Total Counted Not Reportable Sodium 141 Potassium 3.6 Chloride 110 H Carbon Dioxide 21.0 Anion Gap 10 BUN 17 Creatinine 0.96 Estim Creat Clear Calc 71.53 Est GFR (MDRD) Af Amer 88 Est GFR (MDRD) Non-Af 73 BUN/Creatinine Ratio 17.7 Glucose 72 L Calcium 9.3 - Medical Decision Making Patient is tachycardic. She is not tachypneic or hypoxic. She is not PERC negative. Baseline blood work was obtained and CTA of the chest was obtained to evaluate for pulmonary embolus. Differential includes anemia, pneumonia, pulmonary embolus, cardiomyopathy CBC is unremarkable with hemoglobin 13.7. Electrode panel is unremarkable. CTA of the chest was reviewed by me and interpreted by radiologist as no acute findings. The cause of patient's dyspnea and fatigue is unknown. Will have her follow-up with OB and PCP. 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 Recommend follow-up with your egg breaking machine operator Dr. Imelda Nieves.
[2018-07-28 16:08] VITALS: PULSE 105; RESP 16; O2SAT 96
[2018-07-28 16:23] LABS: Anion Gap 10 (5-15); BUN 17 mg/dL (7-18); BUN/Creat Ratio 17.7 RATIO (10-20); Calcium,Total 9.3 mg/dL (8.5-10.1); Chloride 110 mmol/L (98-107); Creatinine, Serum 0.96 mg/dL (0.55-1.02); EST Glomerular Filtration Rate 73 mL/min (>60); Est Glom Filt Rate - Afr Amer 88 mL/min (>60); Estimated Creatinine Clearance 71.53 ml/min; Glucose 72 mg/dL (74-106); Potassium 3.6 mmol/L (3.5-5.1); Sodium Level 141 mmol/L (136-145)
[2018-07-28 16:42] LABS: Absolute Lymphocyte Count 1.99 X10^3/ul (0.83-4.51); Absolute Neutrophil Count 5.8 X10^3/uL (2.0-7.7); Basophil# 0.04 X10^3/uL; Basophil% 0.5 % (0-1); Eosinophil# 0.07 X10^3/uL; Eosinophils% 0.8 % (0-5); Hematocrit 40.7 % (37-47); Hemoglobin 13.7 g/dl (12.0-15.0); Lymphocyte # 1.99 X10^3/ul (4.0); Lymphocyte % 23.8 % (19-41); Mean Corp Hgb Conc 33.7 g/gl (32-36); Mean Corpuscular Hgb 27.8 pg (27.0-32.0); Mean Corpuscular Volume 82.7 fL (81-99); Mean Platelet Vol. 9.1 fl (6.2-12.0); Monocyte# 0.49 X10^3/uL; Monocyte% 5.9 % (0-10); Neutrophil # 5.76 X10^3/uL (2.7-7.7); Neutrophil % 68.8 % (47-70); Platelet Count 268 K/mm3 (150-450); RBC Distribution Width CV 12.2 % (11.6-14.6); RBC Distribution Width SD 36.6 fl (35.1-43.9); Red Blood Count 4.92 M/mm3 (4.2-5.4); White Blood Count 8.4 K/mm3 (4.4-11.0)
[2018-07-28 16:44] LABS: POSITIVE COUNT NO; POSITIVE DIFFERENTIAL NO; POSITIVE MORPHOLOGY NO
[2018-07-28 17:34] VITALS: BP 158/88; PULSE 93; RESP 20; O2SAT 100
--- NOTE | 2018-07-28 17:34 | ED.RN ---
IV DC'ED, CATHETER INTACT, SMALL GAUZE DRESSING PLACED. DISCHARGE INSTRUCTIONS GIVEN TO AND REVIEWED WITH PATIENT, PATIENT DENIES QUESTIONS OR CONCERNS AND VOICES UNDERSTANDING OF DISCHARGE INSTRUCTIONS. PT AMBULATES OUT OF ROOM WITHOUT DIFFICULTY.
== END 2018-07-28 17:35 | disposition home or self-care (01) ==
PROVIDERS: Emergency Provider Emergency Medicine; Family Provider Family Medicine; PCP Family Medicine
DX: O16.5 Unspecified maternal hypertension, complicating the puerperium (principal); O90.89 Other complications of the puerperium, not elsewhere classified; R06.00 Dyspnea, unspecified; R00.0 Tachycardia, unspecified; J02.9 Acute pharyngitis, unspecified; R53.83 Other fatigue
CPT/HCPCS: 71275; 80048; 85025; 99284; Q9967; A4216

== ENCOUNTER 2021-08-04 13:10 | Emergency (ER) | payer MEDICAID, SELFPAY ==
[2021-08-04 13:12] VITALS: BP 132/85; PULSE 113; RESP 16; TEMP 36.9; O2SAT 99; BMI 24.7
--- NOTE | 2021-08-04 13:35 | ED.VIS.LOWEX ---
HPI History of Present Illness Chief Complaint: Lower Extremity Injury Informant: patient Narrative Narrative: Nontraumatic right calf pain for the past week. Denies any new activities or exercise. Denies recent travel or surgeries. No history of mobilization. No history of PE or DVT. Denies chest pains or shortness of breath. Denies any oral contraceptives or tobacco history. No previous similar symptoms. Prior similar symptoms: No PFSH PFSH Medical History Autonomic dysfunction Allergy/AdvReac Type Severity Reaction Status Date / Time No Known Allergies Allergy Verified 08/04/21 13:22 Social History Smoking Status: Never smoker ROS ROS ED Constitutional Constitutional ED: Denies chills, fever(s) or sweats Eyes Eyes: Denies change in vision ENT ENT ED: Denies dysphagia or sore throat Cardiovascular Cardiovascular: Denies chest pain, leg edema, palpitations or racing heartbeat Respiratory/Chest Respiratory/Chest: Denies cough, dyspnea or dyspnea on exertion Gastrointestinal Gastrointestinal: Denies abdominal pain, diarrhea, nausea or vomiting Genitourinary Genitourinary ED: Denies dysuria, hematuria or urinary frequency Musculoskeletal Musculoskeletal: Reports other Details: Right calf pain ; Denies back pain, extremity pain or neck pain Integumentary Denies rash or wounds Neurologic Neurologic: Denies headache(s), paresthesias or weakness EXAM Physical Exam Const Vital Signs: 08/04/21 13:12 Temperature 98.4 F Temperature Source Temporal Pulse Rate 113 H Respiratory Rate 16 Blood Pressure 132/85 H Blood Pressure Mean 100 Pulse Ox 99 Oxygen Delivery Method Room Air Positive well nourished and well developed General Appearance ED: well developed and NAD HEENT Reports moist mucous membranes normocephalic and atraumatic Eyes PERRL, EOMs intact bilaterally and conjunctivae normal General Eye ED: Yes normal appearance of both eyes Neck no lymphadenopathy and supple General: Negative for tenderness Chest Wall Chest: Negative for tenderness Resp normal respiratory effort and normal air movement Effort and Inspection: symmetric chest movement; Negative for respiratory distress Cardio regular rhythm and no murmurs Cardio Narrative: Tachycardic Peripheral Pulses: pulses 2+ throughout GI normal to inspection, nondistended, normoactive bowel sounds and non-tender Palpation: Negative for guarding or rebound tenderness present Back/Spine no CVA tenderness and no thoracic nor lumbar tenderness Extremity normal to inspection Extremity Narrative: Right lower extremity no medial thigh pain there is tenderness at the mid calf. There is no erythema no indurations. Neurovascular intact distally. General Extremety ED: Yes tenderness; Negative for edema General Extremity: Negative for edema Neuro oriented x3 and no sensory deficits noted Sensorium / Orientation: awake and alert Skin no rashes or lesions noted and no wounds MDM MDM MDM Narrative Medical decision making narrative: Patient with mid calf nontraumatic pain. No DVT risk factors. No current ultrasound available at this time, order was placed in for outpatient evaluation in the morning. Did not feel anticoagulation is necessary at this time without risk factors. She is tachycardic however history of autonomic dysfunction. Denies dyspnea or chest pains. Patient return tomorrow to radiology department for her ultrasound. All questions were answered. Discharge Plan Triage Chief Complaint: Lower Extremity Injury ED Provider: Reuben Williamson Dx/Rx/DC Orders Clinical Impression: Right calf pain Instructions: ED Muscle Strain, Extremity Other Ambulatory Orders: Venous Duplex US, Unilateral (Routine) Facility: [facility] - Location: [facility] Ordered By: Dr. Reuben Williamson Primary Care Provider: Cindi Barfield Referrals: Reyes Alan DO [STAFF PHYSICIAN] - 3-5 Days Activity Restrictions/Additional Instructions: Return to imaging department tomorrow for ultrasound of your right lower extremity. Disposition Disposition: Home, Self Care Discharge Date/Time: 08/04/21 13:36
== END 2021-08-04 13:36 | disposition home or self-care (01) ==
LOC: ED 13:30
PROVIDERS: Emergency Provider Emergency Medicine; PCP Physician Assistant; Visit Provider Emergency Medicine
DX: M79.661 Pain in right lower leg (principal); G90.9 Disorder of the autonomic nervous system, unspecified
CPT/HCPCS: 99282

== ENCOUNTER → 2021-08-07 | Outpatient (CLI) | payer MEDICAID, SELFPAY ==
--- NOTE | 2021-08-07 13:53 | VDLE_ITS ---
Reason For Study: Pain RIGHT GSV is normal. CFV is compressible, spontaneous, phasic, competent and demonstrates normal augmentation. FV is compressible, spontaneous, phasic, competent and demonstrates normal augmentation. POP V is compressible, spontaneous, phasic, competent and demonstrates normal augmentation. T/P Trunk is compressible. PTV is compressible. RT PerV is compressible. Procedure This is a venous duplex using B-mode, color flow and spectral Doppler. Exam performed in department. A preliminary report was called and/or faxed to PCP: Lico. Pt seen in ED 08/04/21. VL/Venous Duplex US, Unilateral Interpretation Summary There is no evidence of right lower extremity deep vein thrombosis. Right great saphenous vein appears patent and compressible segmentally. Ordering Physician: Reuben Williamson Referring Physician: Cindi Barfield Performed By: Apryl Kwon RVT
== END | disposition home or self-care (01) ==
LOC: CVS 13:52
PROVIDERS: PCP Physician Assistant; Referring Provider Emergency Medicine; Visit Provider Emergency Medicine
DX: M79.604 Pain in right leg (principal)
CPT/HCPCS: 93971